=== PATIENT | male | born 1960 | race Caucasian/White ===

== ENCOUNTER 2018-05-06 07:47 | Day surgery (SDC) | payer BC ==
[~2018-05-06 07:47] MED LIST: ACETAMINOPHEN 1,000 MG/100 ML BTL IV ONE
[2018-05-06] MEDS ORDERED: DEXAMETHASONE 4 MG/ML 1ML VIAL IVP ONE (07:48)
[2018-05-06] MEDS ORDERED: SEVOFLURANE 250 ML INH ONE (07:48)
[2018-05-06] MEDS ORDERED: ONDANSETRON HCL IV 4 MG/2 ML VIAL IVP ONE (07:48)
[2018-05-06] MEDS ORDERED: BUPIVACAINE 0.25% W/EPI MPF 30ML VIAL IVP ONE (07:48)
[2018-05-06] MEDS ORDERED: PROPOFOL 10 MG/ML VIAL IV ONE (07:48)
[2018-05-06] MEDS ORDERED: LIDOCAINE 2% MDV (20MG/ML) 20ML VIAL IV ONE (07:48)
[2018-05-06] MEDS ORDERED: FENTANYL PF 100MCG/2ML VIAL IV ONE (07:48)
[2018-05-06] MEDS ORDERED: HYDROCODONE/APAP 5/325MG TABLET PO ONE (07:48)
[2018-05-06] MEDS ORDERED: MIDAZOLAM HCL 2MG/2ML VIAL IV ONE (07:48)
--- NOTE | 2018-05-06 14:10 | Operative Note ---
DATE OF SURGERY: 05/06/2018 Surgeon: Soy Acosta DO PREOPERATIVE DIAGNOSES: 1. Torn medial meniscus of the left knee. 2. Chondromalacia of the left knee. POSTOPERATIVE DIAGNOSES: 1. Torn medial meniscus, left knee. 2. 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 OPERATION: Arthroscopic partial medial meniscectomy of the left knee. DESCRIPTION OF PROCEDURE: This 57-year-old male was taken to the operating room and placed in the supine position on the operating room table. General anesthetic was administered. The left lower extremity was elevated, exsanguinated, and the tourniquet inflated to 300 mmHg. The arthroscopic knee barkley applied. The left knee prepped with Hibiclens and draped in the usual sterile fashion. An inferolateral portal was established for the 4 mm arthroscope. Initial evaluation of the joint demonstrated mild grade 2 chondromalacia of the patella and the oblique facet and medial facet, lateral facet being relatively spared. The trochlea appeared normal. The medial compartment was entered and mild grade 2 chondromalacia of the medial femoral condyle was present. Again no loose fragments of articular cartilage and it was not further disturbed. The medial compartment also demonstrated a complex tear of the medial meniscus. We could see where he had had work done on the posterior horn of the medial meniscus previously. There was a remnant of a horizontal cleavage tear posteriorly. This was not terribly unstable but some loose flaps were present, and these were trimmed with the rotating shaver. However, the new tear started at about the 10-o'clock position and extended anteriorly to about the 9-o'clock position. Utilizing the basket forceps and rotating shaver, we smoothed and trimmed and balanced the meniscus to a smooth stable rim and contoured. It was not unstable after probing. The medial compartment was suctioned. We then directed our attention to the intracondylar notch, which was seen to be normal. The lateral compartment was entered. No defects of the articular cartilage or meniscus on the lateral side of the joint were present. The joint was suctioned and the instruments were removed. The portals were then infiltrated with 0.25% Marcaine with epinephrine. Sterile dressings applied. Tourniquet and knee barkley released and the patient taken to the recovery room in satisfactory condition. GROSS PATHOLOGY: There was evidence of previous repair of the medial meniscus but new tear was also present as described above. Mild grade 2 chondromalacia of the patella and medial femoral condyle were present as described above. CC: Dennis HAIR
== END 2018-05-06 11:00 | disposition home or self-care (01) ==
LOC: SUR 07:47
PROVIDERS: ATTEND Orthopaedic Surgery
DX: S83.232A Complex tear of medial meniscus, current injury, left knee, initial encounter (principal); M22.42 Chondromalacia patellae, left knee; M94.262 Chondromalacia, left knee
CPT/HCPCS: 29881; 01400; 93005; J2405; J3010